=== PATIENT | female | born 1975 | race Two or more races ===

== ENCOUNTER 2017-07-20 08:54 | Emergency (ER) | payer MEDICAID ==
[~2017-07-20] VITALS: Ht 160 cm; Wt 93.4 kg
[2017-07-20 09:03] VITALS: BP 139/84
== END 2017-07-20 10:04 | disposition home or self-care (01) ==
LOC: ER 09:04
DX: M72.2 Plantar fascial fibromatosis (principal)

== ENCOUNTER 2023-03-21 11:56 | Emergency (ER) | payer MEDICAID ==
[~2023-03-21] VITALS: Ht 167.6 cm; Wt 91.1 kg
[2023-03-21 13:20] VITALS: BP 115/68; PULSE 80; RESP 18; TEMP 97.5; O2SAT 96
[2023-03-21] MEDS ORDERED: BACDST PO (13:24)
[2023-03-21] MEDS ORDERED: CEPH500C PO (13:24)
== END 2023-03-21 13:27 | disposition home or self-care (01) ==
LOC: ER 11:56
DX: T81.49XD Infection following a procedure, other surgical site, subsequent encounter (principal)